=== PATIENT | male | born 1980 | race Hispanic/Latino ===

== ENCOUNTER 2017-12-01 17:26 | Inpatient (IN) | payer OTHER, SELFPAY ==
[~2017-12-01 17:26] MED LIST: ISOVUE-370 76%-LOCM 1 ML ONE
[2017-12-01] MEDS ORDERED: Adacel (T-DAP) 0.5 ML VIAL ONE (17:33)
[2017-12-01 17:46] LABS: #Basophils 0.1 thou/uL (0.0-0.2); #Eosinphils 0.3 thou/uL (0.0-0.7); #Lymphocytes 5.2 thou/uL (1.20-3.40); #Monocytes 1.6 thou/uL (0.11-0.59); #Neutrophils 11.2 thou/uL (1.40-6.50); %Basophils 0.4 % (0.0-1.0); %Eosinophils 1.6 % (0.0-10.0); %Lymphocytes 28.6 % (21.0-51.0); %Monocytes 8.5 % (0.0-10.0); %Neutrophils 60.8 % (42.0-75.0); Hemoglobin 15.4 g/dL (14.0-18.0); Mean Corpuscular HGB CONC 34.4 g/dL (32.0-36.0); Mean Corpuscular Hemoglobin 32.8 pg (27.0-31.0); Mean Corpuscular Volume 95.3 fl (80.0-94.0); Platelet Count 535 thou/uL (130-400); RBC Distribution Width 12.1 % (11.5-14.5); White Blood Cell (WBC) Count 18.3 thou/uL (4.8-10.8)
[2017-12-01 17:51] LABS: INR-International Normal Ratio 1.1; PTT 29.7 SEC (22.9-36.1); Prothrombin Time 13.9 SEC (12.0-14.7)
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
[2017-12-01] MEDS ORDERED: Fentanyl 100 MCG/2 ML VIAL ONE ×2 (17:56→19:37)
[2017-12-01 18:10] LABS: ALT (SGPT) 98 U/L (8-55); AST (SGOT) 65 U/L (5-34); Albumin 4.3 g/dL (3.5-5.0); Alkaline Phosphatase 100 U/L (40-150); Anion Gap 15 mmol/L (10-20); BUN (Urea Nitrogen) 7 mg/dL (8.9-20.6); Bilirubin, Total 0.7 mg/dL (0.2-1.2); Calc. Creatinine Clearance 0 mL/min (70-130); Calcium 9.3 mg/dL (7.8-10.44); Carbon Dioxide 23 mmol/L (22-29); Chloride 104 mmol/L (98-107); Estimated GFR-MDRD Greater than 90; Globulin 3.8 g/dL (2.4-3.5); Glucose 113 mg/dL (70-105); Potassium 3.7 mmol/L (3.5-5.1); Protein, Total 8.1 g/dL (6.0-8.3); Sodium 138 mmol/L (136-145)
[2017-12-01 18:11] LABS: Acetaminophen Less than 6.0 mcg/mL (10.0-30.0); Alcohol 36 mg/dL (Less than 10); Salicylate Less than 8.0 mg/dL (15.0-30.0)
[2017-12-01 18:14] LABS: CKMB 2.5 ng/mL (0-6.6); Troponin I Less than 0.010 ng/mL (< 0.028)
[2017-12-01] MEDS ORDERED: Ondansetron HCl/PF 4 MG/2 ML Vial ONE ×2 (19:14→20:26)
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
[2017-12-01 21:39] LABS: Lactic Acid 1.3 mmol/L (0.5-2.2)
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
[2017-12-01] MEDS ORDERED: Dextrose 5% in Water 1,000 ML IV PRN (22:29)
[2017-12-01] MEDS ORDERED: Dextrose 50% Abboject 50 ML SYRINGE SLOW IVP PRN (22:29)
[2017-12-01] MEDS ORDERED: hydrALAZINE 20 MG/ML VIAL SLOW IVP PRN (22:29)
[2017-12-01] MEDS ORDERED: Clindamycin/D5W 900 MG in Premix Bag 1 BAG IVPB SCH (22:45)
[2017-12-01] MEDS ORDERED: Bacitracin Zinc 1 Packet TOP SCH (22:45)
[2017-12-01] MEDS ORDERED: Famotidine/PF 20 mg/2ml Vial SLOW IVP SCH (23:00)
[2017-12-02] MEDS: Sodium Chloride 0.9% 1,000 ML IV SCH ×4 (00:11→22:00)
[2017-12-02] MEDS: Ondansetron HCl/PF 4 MG/2 ML Vial IVP PRN ×2 (00:11→06:10)
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
[2017-12-02] MEDS: Morphine 4 MG/ML VIAL SLOW IVP PRN ×4 (02:38→22:32)
[2017-12-02] MEDS: Oxazepam 10 MG CAP PO SCH ×3 (04:46→20:30)
[2017-12-02 05:02] LABS: Band 1 % (5-11); Hemoglobin 15.1 g/dL (14.0-18.0); Lymphocytes 7 % (21-51); MDiff Complete? YES; Mean Corpuscular HGB CONC 34.4 g/dL (32.0-36.0); Mean Corpuscular Hemoglobin 33.1 pg (27.0-31.0); Mean Corpuscular Volume 96.2 fl (80.0-94.0); Mean Platelet Volume 8.1 fL (7.4-10.4); Monocytes 8 % (0-10); Neutrophil 84 % (42-75); PLT Morphology Comment Appears Increased; Platelet Count 495 thou/uL (130-400); RBC Distribution Width 12.3 % (11.5-14.5); Red Blood Cell (RBC) Count 4.57 mill/uL (4.70-6.10); White Blood Cell (WBC) Count 20.2 thou/uL (4.8-10.8)
[2017-12-02 05:07] VITALS: BMI 24.3
[2017-12-02 06:05] LABS: Anion Gap 14 mmol/L (10-20); BUN (Urea Nitrogen) 6 mg/dL (8.9-20.6); Calc. Creatinine Clearance 148 mL/min (70-130); Calcium 9.2 mg/dL (7.8-10.44); Carbon Dioxide 24 mmol/L (22-29); Chloride 103 mmol/L (98-107); Estimated GFR-MDRD Greater than 90; Glucose 145 mg/dL (70-105); Magnesium 1.8 mg/dL (1.6-2.6); Phosphorus 2.8 mg/dL (2.3-4.7); Potassium 3.7 mmol/L (3.5-5.1); Sodium 137 mmol/L (136-145)
[2017-12-02] MEDS: Clindamycin/D5W 900 MG in Premix Bag 1 BAG IVPB SCH ×2 (06:10→13:07)
[2017-12-02] MEDS: Bacitracin Zinc 1 Packet TOP SCH ×2 (08:24→20:30)
[2017-12-02] MEDS: Chlorhexidine Gluconate 15 ML UDCUP SSP SCH ×2 (08:24→20:29)
[2017-12-02] MEDS: Docusate 100 MG CAP PO SCH (08:28)
[2017-12-02] MEDS: Senokot 8.6 MG TAB PO SCH (08:28)
[2017-12-02] MEDS: Famotidine/PF 20 mg/2ml Vial SLOW IVP SCH ×2 (09:48→20:29)
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
[2017-12-02] MEDS: Enoxaparin Sodium 40 MG/0.4 ML SYRINGE SC SCH (20:29)
[2017-12-03] MEDS: Morphine 4 MG/ML VIAL SLOW IVP PRN ×2 (05:12→19:39)
[2017-12-03] MEDS: Sodium Chloride 0.9% 1,000 ML IV SCH ×2 (07:55→14:44)
[2017-12-03] MEDS: Senokot 8.6 MG TAB PO SCH (08:11)
[2017-12-03] MEDS: Docusate 100 MG CAP PO SCH (08:11)
[2017-12-03] MEDS: Oxazepam 10 MG CAP PO SCH ×3 (08:11→22:15)
[2017-12-03] MEDS: Bacitracin Zinc 1 Packet TOP SCH ×2 (08:11→22:15)
[2017-12-03] MEDS: Chlorhexidine Gluconate 15 ML UDCUP SSP SCH ×2 (08:15→22:15)
[2017-12-03] MEDS ORDERED: Ondansetron ODT 4 MG TAB PO PRN (08:26)
[2017-12-03] MEDS ORDERED: traMADol HCl 50 MG TAB PO PRN (08:28)
[2017-12-03] MEDS: Folic Acid 1 MG TAB PO SCH (09:36)
[2017-12-03] MEDS: Acetaminophen 500 MG TAB PO SCH ×2 (12:03→17:42)
[2017-12-03] MEDS: cloNIDine 0.1 MG TAB PO SCH ×2 (12:03→17:42)
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
[2017-12-03] MEDS: traMADol HCl 50 MG TAB PO PRN (19:40)
[2017-12-03] MEDS: Enoxaparin Sodium 40 MG/0.4 ML SYRINGE SC SCH (22:15)
[2017-12-04] MEDS: Sodium Chloride 0.9% 1,000 ML IV SCH ×2 (00:31→08:25)
[2017-12-04] MEDS: cloNIDine 0.1 MG TAB PO SCH ×3 (00:31→12:14)
[2017-12-04] MEDS: Acetaminophen 500 MG TAB PO SCH ×3 (00:31→12:14)
[2017-12-04] MEDS: traMADol HCl 50 MG TAB PO PRN (01:55)
[2017-12-04] MEDS: Morphine 4 MG/ML VIAL SLOW IVP PRN (06:59)
[2017-12-04] MEDS: Bacitracin Zinc 1 Packet TOP SCH (08:26)
[2017-12-04] MEDS: Folic Acid 1 MG TAB PO SCH (08:26)
[2017-12-04] MEDS: Docusate 100 MG CAP PO SCH (08:26)
[2017-12-04] MEDS: Senokot 8.6 MG TAB PO SCH (08:27)
[2017-12-04] MEDS ORDERED: Senokot S 8.6-50 MG TAB PO SCH (09:00)
[2017-12-04] MEDS ORDERED: Polyethylene Glycol 3350 17 GM Packet PO SCH (09:00)
[2017-12-04] MEDS: Oxazepam 10 MG CAP PO SCH (09:39)
[2017-12-04] MEDS: Chlorhexidine Gluconate 15 ML UDCUP SSP SCH (09:39)
[2017-12-04 12:15] VITALS: BP 125/70
[2017-12-04 12:30] VITALS: TEMP 97.6
== END 2017-12-04 14:41 | disposition home or self-care (01) | DRG 552 ==
LOC: EDBD 17:26 → ERS 17:26 → IMCU/EMU 19:20 → SURG B 12-03 14:43
PROVIDERS: ADMIT Surgery; ATTEND Surgery
DX: S12.000A Unspecified displaced fracture of first cervical vertebra, initial encounter for closed fracture (principal); F17.210 Nicotine dependence, cigarettes, uncomplicated; F10.10 Alcohol abuse, uncomplicated; V26.4XXA Motorcycle driver injured in collision with other nonmotor vehicle in traffic accident, initial encounter; S01.81XA Laceration without foreign body of other part of head, initial encounter; R55 Syncope and collapse; R53.1 Weakness; G54.0 Brachial plexus disorders
CPT/HCPCS: 36415; 70450; 70486; 71045; 71260; 72125; 72141; 72170; 74177; 80048; 80053; 80307; 82553; 83605; 83735; 84100; 84484; 85025; 85610; 85730; 86850; 86900; 86901; 90471; 90715; 93005; 96374; 96375; 96376; G0390; G8978-GP-CL; G8979-GP-CH; G8987-GO-CI; J1650; J2270; J2405; J3010; J3490; L0174; S0028

== ENCOUNTER 2018-01-02 09:04 | Outpatient (CLI) | payer SELFPAY ==
--- NOTE | 2018-01-02 10:57 | CT ---
CT CERVICAL SPINE WITHOUT CONTRAST: HISTORY: Follow up C1 fracture. COMPARISON: 12/01/2017 CORRELATION: Cervical spine MRI from 12/01/2017. TECHNIQUE: CT cervical spine was performed without contrast. Coronal and sagittal reformatted images were submi tted for interpretation. FINDINGS: Redemonstration of a nonhealed anterior-inferior C1 ring fracture. There is some increased density a t the level of the C1 and C2 central spinal canal, which may represent residual blood products. The remaining cervical vertebrae are intact. There is straightening of normal cervical lordosis. No prevertebral soft tissue swelling. No high grade central canal stenosis or high grade foraminal narrowing. Fullness of the left lingual tonsils and bilateral palatine tonsils, nonspecific. IMPRESSION: Redemonstration of a C1 fracture, with fracture extending into the right lateral mass of C1. POS: DARIEL
== END 2018-01-02 09:05 | disposition home or self-care (01) ==
LOC: TBSIIMAG 09:04
PROVIDERS: ATTEND Neurological Surgery
DX: S12.001A Unspecified nondisplaced fracture of first cervical vertebra, initial encounter for closed fracture (principal)
CPT/HCPCS: 72125

== ENCOUNTER 2018-02-06 09:11 | Outpatient (CLI) | payer OTHER ==
[2018-02-06] MEDS ORDERED: Gadobenate Dimeglumine 529 MG/1 ML (20ML VIAL) ONE (11:32)
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
== END 2018-02-06 09:12 | disposition home or self-care (01) ==
LOC: TBSIIMAG 09:11
PROVIDERS: ATTEND Neurological Surgery
DX: G54.0 Brachial plexus disorders (principal); S14.5XXA Injury of cervical sympathetic nerves, initial encounter; R60.0 Localized edema
CPT/HCPCS: 71552